=== PATIENT | female | born 1965 | race Caucasian/White ===

== ENCOUNTER → 2018-09-12 | Outpatient (CLI) | payer OTHER ==
[~2018-09-12] MED LIST: ALBU18HF INH; CHRO1TAB6 PO; HYDR25TA6 PO; LEVO175T2 PO; OMEP-110 PO; OMEP20TA62 PO; POTASSIUM PO; TOLT4CAP PO; TOLT4CAP12 PO
== END | disposition home or self-care (01) ==
LOC: CFH 15:58
PROVIDERS: ATTEND Internal Medicine Cardiovascular Disease
DX: I47.1 Supraventricular tachycardia (principal); Z85.3 Personal history of malignant neoplasm of breast; Z85.850 Personal history of malignant neoplasm of thyroid
CPT/HCPCS: 93308; 93320; 93325